=== PATIENT | male | born 1995 | race Caucasian/White ===

== ENCOUNTER 2018-09-15 21:03 | Emergency (ER) | payer MEDICAID ==
[2018-09-15] MEDS ORDERED: Sodium Chloride 0.9% 10 ML Syringe FLUSH PRN (21:14)
[2018-09-15] MEDS ORDERED: Clindamycin Phosphate 900 MG in Sodium Chloride 0.9% 100 ML IV ONE (21:15)
[2018-09-15] MEDS ORDERED: Sodium Chloride 0.9% 1,000 ML IV ONE (21:15)
--- NOTE | 2018-09-15 21:20 | EDM.PDOC ---
ED HPI GENERAL MEDICAL PROBLEM - General Chief Complaint: Respiratory Problem Stated Complaint: SOB; Cough; Possible spider bite to right lower leg Time Seen by Provider: 09/15/18 21:04 - History of Present Illness INITIAL COMMENTS - FREE TEXT/NARRATIVE: Patient presents to the ED at [facility] for the evaluation of a cough and sore throat that started last Sunday. He does not have any sputum. No eye or ear symptoms. No rhinitis or sinus pressure/pain. Complains of a sore throat. Close family members have been sick with similar symptoms. He is trying to stay well hydrated. Has not taken any OTC medications. He feels somewhat SOB. No focal neurological problems. Patient is also concerned about a wound on the right lower lateral leg. He thinks he may have been bitten by a spider. He states the area is warm and painful. He has not noticed any discharge. No red streaking. Tender to palpation. - Related Data Allergies Allergy/AdvReac Type Severity Reaction Status Date / Time No Known Drug Allergies Allergy Other Verified 09/15/18 21:39 Home Meds: Home Meds Doxycycline [Vibramycin] 100 mg IV Q12H 7 Days #14 vial 09/15/18 [Rx] predniSONE 20 mg PO BID 4 Days #8 tab 09/15/18 [Rx] Past Medical History - Past Health History Medical/Surgical History: Denies Medical/Surgical History Gastrointestinal History: Reports: Other (See Below) Other Gastrointestinal History: hernia Musculoskeletal History: Reports: Fracture Neurological History: Reports: Seizure, Other (See Below) Other Neuro History: EPILEPSY Psychiatric History: Reports: ADD, ADHD, Bipolar - Past Surgical History GI Surgical History: Reports: Hernia, Inguinal Neurological Surgical History: Reports: None Musculoskeletal Surgical History: Reports: None Social & Family History - Family History Family Medical History: Noncontributory ED ROS GENERAL - Review of Systems Review Of Systems: See Below Constitutional: Denies: Fever, Chills HEENT: Reports: Throat Pain. Denies: Ear Pain, Eye Discharge, Eye Pain, Rhinitis, Sinus Problem Respiratory: Reports: Shortness of Breath, Cough. Denies: Sputum Skin: Reports: Wound (Right lateral lower varma) Neurological: Reports: No Symptoms ED EXAM, GENERAL - Physical Exam Exam: See Below Exam Limited By: No Limitations General Appearance: Alert, No Apparent Distress Eye Exam: Bilateral Eye: Normal Inspection, PERRL Ears: Normal External Exam, Normal Canal, Normal TMs Ear Exam: Bilateral Ear: TM normal Nose: Normal Inspection Throat/Mouth: Other (posterior oropharynx erythema, no exudate) Neck: Supple Respiratory/Chest: No Respiratory Distress, Lungs Clear, Normal Breath Sounds Cardiovascular: Normal Peripheral Pulses, Regular Rate, Rhythm Peripheral Pulses: 2+: Radial (L), Radial (R) Neurological: Alert, Oriented Skin Exam: Warm, Dry, Intact, Wound/Incision (2cm diameter skin abscess, right lateral lower varma; scab in place; no drainage; erythematous; tender to palpation) Course - Vital Signs Last Recorded V/S: Last Vital Signs Temp 36.4 C 09/15/18 21:36 Pulse 101 H 09/15/18 21:36 Resp 16 09/15/18 21:36 BP 136/85 09/15/18 21:36 Pulse Ox 98 09/15/18 21:36 - Orders/Labs/Meds Orders: Active Orders 24 hr Category Date Time Status Chest 2V [CR] Stat Exams 09/15/18 21:13 Taken CULTURE STREP A CONFIRMATION [RM] Stat Lab 09/15/18 21:06 Results STREP SCRN A RAPID W CULT CONF [] Stat Lab 09/15/18 21:06 Results Sodium Chloride 0.9% [Normal Saline] 1,000 ml Med 09/15/18 21:15 Active IV ONETIME Sodium Chloride 0.9% [Saline Flush] Med 09/15/18 21:14 Active 10 ml FLUSH ASDIRECTED PRN Peripheral IV Insertion Adult [OM.PC] Routine Oth 09/15/18 21:14 Ordered Medication Orders Sodium Chloride (Normal Saline) 1,000 mls @ 999 mls/hr IV ONETIME ONE Stop: 09/15/18 22:15 Last Admin: 09/15/18 21:29 Dose: 999 mls/hr Sodium Chloride (Saline Flush) 10 ml FLUSH ASDIRECTED PRN PRN Reason: Keep Vein Open Labs: Laboratory Tests 09/15/18 09/15/18 Range/Units 21:15 21:15 WBC 8.0 (4.0-10.0) x10^3/uL RBC 4.97 (4.5-6.0) x10^6/uL Hgb 15.3 (14.0-18.0) g/dL Hct 43.4 (40.0-52.0) % MCV 87.3 (78.0-93.0) fL MCH 30.8 (26.0-32.0) pg MCHC 35.3 (32.0-36.0) g/dL RDW Coeff of [place] 12.5 (10.0-15.0) % Plt Count 176 (130-400) x10^3/uL Add Manual Diff Yes Neutrophils % (Manual) 34 L (50-80) % Lymphocytes % (Manual) 48 (25-50) % Atypical Lymphs % 10 H (0) % Monocytes % (Manual) 7 (2-11) % Eosinophils % (Manual) 1 (0-4) % Platelet Estimate Adequate Sodium 145 (136-145) mmol/L Potassium 4.0 (3.5-5.1) mmol/L Chloride 103 (98-107) mmol/L Carbon Dioxide 32 (21-32) mmol/L Anion Gap 14.0 (10-20) mmol/L BUN 9 (7-18) mg/dL Creatinine 1.0 (0.70-1.30) mg/dL Est Cr Clr Drug Dosing TNP Estimated GFR (MDRD) > 60 Glucose 77 (74-106) mg/dL Calcium 8.6 (8.5-10.1) mg/dL Meds: Medications Generic Name Dose Route Start Last Admin Trade Name Freq PRN Reason Stop Dose Admin Sodium Chloride 1,000 mls @ 999 mls/hr 09/15/18 21:15 09/15/18 21:29 Normal Saline IV 09/15/18 22:15 999 mls/hr ONETIME ONE Administration Sodium Chloride 10 ml 09/15/18 21:14 Saline Flush FLUSH ASDIRECTED PRN Keep Vein Open Discontinued Medications Generic Name Dose Route Start Last Admin Trade Name Freq PRN Reason Stop Dose Admin Clindamycin Phosphate 900 mg/ 106 mls @ 200 mls/hr 09/15/18 21:15 09/15/18 21 :30 Sodium Chloride IV 09/15/18 21:46 200 mls/hr STAT ONE Administration Prednisone 1 packet 09/15/18 21:40 Take Home: Prednisone 20 Mg, 2 Tab Pack PO 09/15/18 21:41 ONETIME ONE Departure - Departure Time of Disposition: 21:44 Disposition: Home, Self-Care 01 Condition: Good Clinical Impression: Bronchitis Skin abscess Qualifiers: Site of cutaneous abscess: extremity Site of cutaneous abscess of extremity: lower extremity Laterality: right Qualified Code(s): L02.415 - Cutaneous abscess of right lower limb - Discharge Information *PRESCRIPTION DRUG MONITORING PROGRAM REVIEWED*: Not Applicable *COPY OF PRESCRIPTION DRUG MONITORING REPORT IN PATIENT SONIA: Not Applicable Prescriptions: Doxycycline [Vibramycin] 100 mg IV Q12H 7 Days #14 vial predniSONE 20 mg PO BID 4 Days #8 tab Instructions: Skin Abscess, Acute Bronchitis, Adult, [id number] Referrals: Martin Stephenson NP [Emergency Provider] - Forms: ED Department Discharge Additional Instructions: 1. Stay well hydrated and rest 2. Take antibiotics for the full coarse, even if you are feeling better 3. No wound care needed 4. See me in clinic in one week for a recheck to make sure wound is healing - Problem List Review Problem List Initiated/Reviewed/Updated: Yes - My Orders Last 24 Hours: My Active Orders 09/15/18 21:06 CULTURE STREP A CONFIRMATION [RM] Stat STREP SCRN A RAPID W CULT CONF [RM] Stat 09/15/18 21:13 Chest 2V [CR] Stat 09/15/18 21:14 Sodium Chloride 0.9% [Saline Flush] 10 ml FLUSH ASDIRECTED PRN Peripheral IV Insertion Adult [OM.PC] Routine 09/15/18 21:15 Sodium Chloride 0.9% [Normal Saline] 1,000 ml IV ONETIME - Assessment/Plan Last 24 Hours: My Active Orders 09/15/18 21:06 CULTURE STREP A CONFIRMATION [RM] Stat STREP SCRN A RAPID W CULT CONF [RM] Stat 09/15/18 21:13 Chest 2V [CR] Stat 09/15/18 21:14 Sodium Chloride 0.9% [Saline Flush] 10 ml FLUSH ASDIRECTED PRN Peripheral IV Insertion Adult [OM.PC] Routine 09/15/18 21:15 Sodium Chloride 0.9% [Normal Saline] 1,000 ml IV ONETIME Assessment:: Bronchitis Skin abscess Plan: Labs and xray results discussed. IV Clindamycin given in ER. Will start PO Doxycyline for the next 7 days. Prednisone for cough. Needs to follow up in one week with PCP to recheck leg wound.
[2018-09-15 21:35] LABS: CHLORIDE,CL 103 mmol/L (98-107); SODIUM,NA 145 mmol/L (136-145)
[2018-09-15 21:37] VITALS: BP 136/85
[2018-09-15] MEDS ORDERED: Take Home: predniSONE 20 MG, 2 Tab Pack PO ONE (21:40)
[2018-09-15] MEDS ORDERED: Ondansetron 4 MG/2 ML SDV IVPUSH ONE (21:50)
[2018-09-15] MEDS ORDERED: Take Home: Ondansetron 4 MG Tab.DIS, 2 Tab Pack PO ONE (21:52)
--- NOTE | 2018-09-16 07:53 | CR ---
[id number] RAD/RAD Chest PA And Lateral EXAM: FRONTAL AND LATERAL CHEST INDICATION: Cough. COMPARISON: None. DISCUSSION: The heart and lungs are normal in appearance. Tiny granuloma within the right upper lobe. Chronic healed left clavicle fracture. IMPRESSION: 1. Negative exam. Sami Mackay MD 09/16/18 0752 Thank you for allowing us to participate in the care of your patient.
== END 2018-09-15 22:08 | disposition home or self-care (01) ==
LOC: VM.ED 21:03
DX: J40 Bronchitis, not specified as acute or chronic (principal); L02.415 Cutaneous abscess of right lower limb
CPT/HCPCS: 36415; 71046; 80048; 85025; 87081; 87804; 87804-59; 87880-QW; 96365; 96375; 99283-25; A9270-GY; J2405; J3490; J7030; J7050

== ENCOUNTER 2019-07-11 13:33 | Emergency (ER) | payer MEDICAID, OTHER ==
[2019-07-11] MEDS ORDERED: Sodium Chloride 0.9% 10 ML Syringe FLUSH PRN (13:45)
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
[2019-07-11 14:28] LABS: ANION GAP 14.1 mmol/L (10-20); CHLORIDE,CL 103 mmol/L (98-107); SODIUM,NA 141 mmol/L (136-145)
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
== END 2019-07-11 15:15 ==
LOC: VM.ED 13:33
DX: S60.511A Abrasion of right hand, initial encounter (principal); M79.10 Myalgia, unspecified site; Z79.899 Other long term (current) drug therapy; V87.8XXA Person injured in other specified noncollision transport accidents involving motor vehicle (traffic), initial encounter
CPT/HCPCS: 71046; 72072; 80053; 83880; 85025; 99284-25

== ENCOUNTER 2021-05-27 18:53 | Emergency (ER) | payer MEDICAID ==
--- NOTE | 2021-05-27 19:34 | CR ---
[id number] RAD/RAD Hand Right 3V EXAM: RAD Hand Right 3V INDICATION: Trauma. COMPARISON: April 22, 2011. DISCUSSION: No fracture, dislocation or other osseous abnormality. IMPRESSION: 1. Negative exam. Sami Mackay MD 05/27/21 [id number] Thank you for allowing us to participate in the care of your patient.
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
[2021-05-27 22:09] VITALS: BP 120/66; PULSE 117
== END 2021-05-27 21:00 | disposition home or self-care (01) ==
LOC: VM.ED 18:53
DX: S69.91XA Unspecified injury of right wrist, hand and finger(s), initial encounter (principal); R56.9 Unspecified convulsions; K21.9 Gastro-esophageal reflux disease without esophagitis; Z91.011 Allergy to milk products; Z72.0 Tobacco use; Z79.899 Other long term (current) drug therapy; W22.8XXA Striking against or struck by other objects, initial encounter
CPT/HCPCS: 73130-RT; 99284-25